=== PATIENT | male | born 1980 | race Caucasian/White ===

== ENCOUNTER 2023-04-20 11:52 | Emergency (ER) | payer OTHER ==
[~2023-04-20] VITALS: Ht 188 cm; Wt 102.5 kg
[~2023-04-20 11:52] MED LIST: DOXYCYCLINE HY100 MG PO; OMEPRAZOLE20 M1 PO; SERTRALINE HCL100 MG PO; TRIAMCINOLONE A15 G1 TOP
--- OUTSIDE RECORDS SUMMARY | 2023-04-20 12:00 | XMS ---
PreManage Notification: SETH HOOD Security Financial Service Professional Events No recent Security Events currently on file CRITERIA MET - [facility] - 2 Visits in 30 Days CARE PROVIDERS -Kary- Dentist: Culinary Specialist Current [facility] PHONE: [phone] HILDA SANTOS Nurse Practitioner Current PHONE: Unknown José Luis has no Care Guidelines for this patient. Maria Del Carmen VISIT COUNT (12 MO.) [address] [place] [address] TOTAL 3 NOTE: Visits indicate total known visits. ED/UCC VISIT TRACKING (12 MO.) 04/20/2023 11:53 [facility] TYPE: Emergency COMPLAINT: - R TESTICLE ISSUE/PAIN 04/05/2023 13:06 [facility] TYPE: Emergency COMPLAINT: - EYE PAIN DIAGNOSES: - Allergy status to penicillin - Gastro-esophageal reflux disease without esophagitis - Other termite inspector (current) drug therapy - Other urethritis - Urethral discharge, unspecified 12/08/2022 13:59 [facility] TYPE: Emergency COMPLAINT: - ABNORMAL LABS DIAGNOSES: - Allergy status to penicillin - Anemia, unspecified - Diarrhea, unspecified - Epigastric pain - Other termite inspector (current) drug therapy INPATIENT VISIT TRACKING (12 MO.) No inpatient visits to display in this time frame [email or web address]
[2023-04-20 13:24] LABS: BILIRUBIN, URINE NEGATIVE (negative); BLOOD/HGB, URINE NEGATIVE (Negative); KETONE, URINE SMALL (Negative); LEUK ESTERASE, URINE NEGATIVE (negative); NITRITE, URINE NEGATIVE (negative); PH, URINE 8.5 (5-7)
[2023-04-20 13:33] LABS: EPITHELIAL CELLS, URINE 0 /lpf (0-1+)
[2023-04-20 13:34] LABS: BACTERIA, URINE RARE /hpf (negative); CASTS, URINE NONE SEEN \\lpf; COLLECTION TYPE, URINE CLEAN CATCH; CRYSTALS, URINE NONE SEEN (0-1+); REFLEX CULTURE, URINE No (No)
[2023-04-20 16:14] LABS: N. GONORRRHOEAE BY PCR NOT DETECTED (NOT DETECT)
[2023-04-20] MEDS ORDERED: DOXYCYCLINE HY100 MG PO (16:18)
[2023-04-20 16:27] VITALS: BP 120/79
== END 2023-04-20 16:28 | disposition home or self-care (01) ==
LOC: ED 11:52
PROVIDERS: Emergency Medicine
DX: N45.3 Epididymo-orchitis (principal); K21.9 Gastro-esophageal reflux disease without esophagitis; R82.81 Pyuria; Z20.2 Contact with and (suspected) exposure to infections with a predominantly sexual mode of transmission; Z88.0 Allergy status to penicillin; Z79.899 Other long term (current) drug therapy
CPT/HCPCS: 76870; 81001; 96372; 99284-25; J0696